=== PATIENT | male | born 1945 | race Caucasian/White ===

== ENCOUNTER → 2017-01-11 | Outpatient (CLI) | payer MEDICARE, OTHER ==
--- NOTE | 2017-01-11 14:04 | RADIOLOGY REPORT (SQ) ---
EXAM DESCRIPTION: CT CHEST WITHOUT COMPLETED DATE/TIME: 01/11/2017 1:05 pm REASON FOR STUDY: SOLITARY PULMONARY NODULE (R91.1) R91.1 SOLITARY PULMONARY NODULE COMPARISON: CT chest 12/08/2012, 12/24/2012, 06/02/2013, 10/08/2014, 08/08/2015 TECHNIQUE: CT scan performed of the chest without intravenous contrast. Images reviewed with lung, soft tissue and bone windows. Reconstructed coronal and sagittal MPR images reviewed. All images st ored on PACS. All CT scanners at this facility use dose modulation, iterative reconstruction, and/or weight based d osing when appropriate to reduce radiation dose to as low as reasonably achievable (ALARA). [facility]: Dose Right [facility]: CareDose [facility]: Dose Right [facility]: Teradose 4D [facility]: [employer] RADIATION DOSE: Up-to-date CT equipment and radiation dose reduction techniques were employed. CTDIv ol: 13.5 mGy. DLP: 552 mGy-cm. mGy. LIMITATIONS: No technical limitations. FINDINGS: LUNGS AND PLEURA: Since the prior studies, patient has developed partial collapse and cons olidation in the lateral segment right middle lobe and lateral segment right lower lobe. The lower l obe consolidation partially obscures the nodule in the right posterolateral costophrenic sulcus which has been followed with serial exams. No pleural effusions. No pneumothorax. Obstructive lung disease at both apices. No significant fin dings left lung. Mucus or debris occludes the right lower lobe segmental bronchi best shown on axial images 78-85. HILAR AND MEDIASTINAL STRUCTURES: No identified masses or abnormal nodes. No obvious aneurysm. HEART AND VASCULAR STRUCTURES: Trace pericardial fluid, stable. Very heavily calcified coronary yariel john, spotty aortic valve calcification. UPPER ABDOMEN: Small hiatal hernia. Radiopaque gallstones without gallbladder wall thickening THYROID AND OTHER SOFT TISSUES: No masses. No adenopathy. BONES: Osteopenic with stable upper endplate 25% compression of L1 HARDWARE: None in the chest. OTHER: No other significant findings. IMPRESSION: Since the prior studies, patient has developed consolidation worrisome for pneumonia in the lateral segment right middle lobe, and lateral basal segment right lower lobe TECHNICAL DOCUMENTATION: JOB ID: [id number] Quality ID # [id number]: Final reports with documentation of one or more dose reduction techniques (e.g., Au tomated exposure control, adjustment of the mA and/or kV according to patient size, use of iterative reconstruction technique) 2010 [employer]- All Rights Reserved
== END ==
LOC: RAD 13:32
PROVIDERS: ATTEND Internal Medicine Pulmonary Disease
DX: R91.1 Solitary pulmonary nodule (principal)
CPT/HCPCS: 71250

== ENCOUNTER 2017-05-21 09:09 | Emergency (ER) | payer MEDICARE, OTHER ==
[2017-05-21] MEDS ORDERED: NORMAL SALINE 1000 ML 1,000 ML IV ONE (09:41)
--- NOTE | 2017-05-21 10:17 | RADIOLOGY REPORT (SQ) ---
EXAM DESCRIPTION: CHEST SINGLE VIEW COMPLETED DATE/TIME: 05/21/2017 10:06 am REASON FOR STUDY: cough COMPARISON: CT chest 01/11/2017, 08/08/2015 Chest films 08/08/2015, 06/29/2015 EXAM PARAMETERS: NUMBER OF VIEWS: One view. TECHNIQUE: Single frontal radiographic view of the chest acquired. RADIATION DOSE: NA LIMITATIONS: None. FINDINGS: LUNGS AND PLEURA: Mild hyperinflation of the upper lobes from obstructive disease. In the right lateral lung base, chronic increased interstitial markings are present with nodular scar ring in this area on prior chest CT exam. No pleural effusions. No pneumothorax. MEDIASTINUM AND HILAR STRUCTURES: No masses. Contour normal. HEART AND VASCULAR STRUCTURES: Heart normal in size. Normal vasculature. BONES: No acute findings. HARDWARE: None in the chest. OTHER: No other significant finding. IMPRESSION: Obstructive lung disease at the apices. Right lateral lung base scarring, similar compared to prior chest CT exams TECHNICAL DOCUMENTATION: JOB ID: [id number] [employer]- All Rights Reserved
[2017-05-21] MEDS ORDERED: CARVEDILOL 3.125 MG TABLET PO ONE (10:20)
--- NOTE | 2017-05-21 10:24 | ER Document Report ---
ED General - General Chief Complaint: General Weakness Stated Complaint: ALTERED MENTAL STATUS Time Seen by Provider: 05/21/17 09:40 Notes: The patient is a 72-year-old male, past medical history A. fib (on Coreg and Xarelto), presents from [facility] after he was not acting right. The detention staff said he was not "moving around like he normally does." Patient was noted to be soaked with foul-smelling urine on arrival to the ER. Patient is AAO 3 and has no complaints at this time. While in the ER, he went into A. fib RVR, but he denies chest pain, palpitations, syncope, shortness of breath, nausea, vomiting or fevers. TRAVEL OUTSIDE OF THE [place] IN LAST 30 DAYS: No - Related Data Allergies/Adverse Reactions: No Known Allergies Allergy (Verified 12/08/12 07:13) Past Medical History - General Information source: Patient, Outside Facility Records - Social History Smoking Status: Unknown if Ever Smoked Family History: Reviewed & Not Pertinent, Hypertension - Past Medical History Cardiac Medical History: Reports: Hx Hypertension - undiagnosed Pulmonary Medical History: Reports: Hx COPD - undiagnosed Psychiatric Medical History: Denies: Hx Depression - Immunizations Hx Diphtheria, Pertussis, Tetanus Vaccination: No Review of Systems - Review of Systems Notes: REVIEW OF SYSTEMS: CONSTITUTIONAL: -fevers, -chills EENT: -eye pain, -difficulty swallowing, -nasal congestion CARDIOVASCULAR: -chest pain, -syncope. RESPIRATORY: -cough, -SOB GASTROINTESTINAL: -abdominal pain, -nausea, -vomiting, -diarrhea GENITOURINARY: -dysuria, -hematuria MUSCULOSKELETAL: -back pain, -neck pain SKIN: -rash or skin lesions. HEMATOLOGIC: -easy bruising or bleeding. LYMPHATIC: -swollen, enlarged glands. NEUROLOGICAL: +AMS, -loss of consciousness, -headache, -neurologic symptoms PSYCHIATRIC: -anxiety, -depression. ALL OTHER SYSTEMS REVIEWED AND NEGATIVE. Physical Exam - Vital signs Vitals: Temp 97.9 F 05/21/17 09:20 - Notes Notes: PHYSICAL EXAMINATION: GENERAL: Well-appearing, well-nourished and in no acute distress. HEAD: Atraumatic, normocephalic. EYES: Pupils equal round and reactive to light, extraocular movements intact, sclera anicteric, conjunctiva are normal. ENT: nares patent, oropharynx clear without exudates. Moist mucous membranes. NECK: Normal range of motion, supple without lymphadenopathy LUNGS: Breath sounds clear to auscultation bilaterally and equal. No wheezes rales or rhonchi. HEART: Tachycardia, irregularly irregular rhythm. ABDOMEN: Soft, nontender, normoactive bowel sounds. No guarding, no rebound. No masses appreciated. EXTREMITIES: Normal range of motion, no pitting or edema. No cyanosis. NEUROLOGICAL: Cranial nerves grossly intact. Normal speech. Normal sensory and motor exams. PSYCH: Normal mood, normal affect. SKIN: Warm, Dry, normal turgor, no rashes or lesions noted. Course - Re-evaluation Re-evalutation: Patient appears well and is in no acute distress. He is AAO 3 and has no complaints at this time. His head CT did not show any acute changes and blood work was unremarkable. Patient jumped into AEVRST with RVR while in the ER. Looking through his records, he takes Coreg and Xarelto. He was provided with Coreg dose with some improvement of his heart rate from 160s down to 130s. Patient kept ripping his IV lines out, so oral beta-blockers were given to the patient with improvement of his RVR. Upon discharge, he continues to not have any symptoms and his heart rate is in the 90s. Blood pressure is 112/81. Instructed him to follow-up with his primary care physician and group art supervisor for further evaluation and treatment. - Vital Signs Vital signs: Temp Pulse Resp BP Pulse Ox 97.9 F 110 H 25 H 95/67 L 93 05/21/17 09:20 05/21/17 15:08 05/21/17 17:01 05/21/17 17:01 05/21/17 17:01 - Laboratory Result Diagrams: 05/21/17 11:06 05/21/17 11:06 Laboratory results interpreted by me: 05/21/17 05/21/17 05/21/17 10:58 11:06 11:06 RDW 15.1 H Lymphocytes % 12.5 L PT 16.0 H Sodium Chloride BUN Glucose Direct Bilirubin ALT Creatine Kinase NT-Pro-B Natriuret Pep Urine Protein >=500 H Urine Urobilinogen 2.0 H 05/21/17 05/21/17 11:06 11:06 RDW Lymphocytes % PT Sodium 148.6 H Chloride 108 H BUN 22 H Glucose 131 H Direct Bilirubin 0.6 H ALT 79 H Creatine Kinase 45 L NT-Pro-B Natriuret Pep 2200 H Urine Protein Urine Urobilinogen - Diagnostic Test Radiology reviewed: Image reviewed, Reports reviewed Radiology results interpreted by me: CXR: Obstructive lung disease at the apices. Right lateral lung base scarring, similar compared to prior chest CT exams. - EKG Interpretation by Me EKG shows normal: Reserve Rate: Tachycardia Rhythm: A.Fib Additional EKG results interpreted by me: A fib w/ RVR, ST depression in lateral leads Discharge - Discharge Clinical Impression: Atrial fibrillation with rapid ventricular response Condition: Stable Disposition: HOME, SELF-CARE Additional Instructions: Continue your Xarelto and Coreg as instructed and speak to your group art supervisor about further evaluation and treatment. Your head scan, blood work and urine are all unremarkable. Atrial Fibrillation Atrial fibrillation is an abnormal heart rhythm, caused by irregular electrical circuits in the upper heart chamber. It can be caused by heart valve disease, hardening of the arteries, or metabolic problems such as thyroid disease, or may occur without a clear cause. Atrial fibrillation may occur only occasionally, or may be chronic. Atrial fibrillation often results in a very fast heart rate, with palpitations, lightheadedness, and shortness of breath. Treatment is to slow the abnormally fast rate, and to convert the rhythm back to normal, if possible. Many patients stay in atrial fibrillation for years without symptoms or complications. Your doctor will decide whether you can be converted back to a normal heart rhythm. Contact the doctor or emergency medical system at once if you develop chest pain, shortness of breath, or severe lightheadedness, or if you develop any disturbance of consciousness, problems with speech, or localized weakness. Referrals: AVILA GLEASON PA-C [Primary Care Provider] - Follow up as needed
--- NOTE | 2017-05-21 10:58 | RADIOLOGY REPORT (SQ) ---
EXAM DESCRIPTION: CT HEAD WITHOUT COMPLETED DATE/TIME: 05/21/2017 10:38 am REASON FOR STUDY: AMS COMPARISON: December 2012 TECHNIQUE: Axial images acquired through the brain without intravenous contrast. Images reviewed wi th bone, brain and subdural windows. Images stored on PACS. All CT scanners at this facility use dose modulation, iterative reconstruction, and/or weight based d osing when appropriate to reduce radiation dose to as low as reasonably achievable (ALARA). [facility]: Dose Right [facility]: CareDose [facility]: Dose Right [facility]: Teradose 4D [facility]: [employer] RADIATION DOSE: CT Rad equipment meets quality standard of care and radiation dose reduction techniq ues were employed. CTDIvol: 63.6 mGy. DLP: 2326 mGy-cm.mGy. LIMITATIONS: Study is limited somewhat due to motion artifact FINDINGS: VENTRICLES: Prominent. CEREBRUM: No masses. No hemorrhage. No midline shift. Areas of low density in the white matter mos t likely due to chronic micro-vascular ischemic change. No evidence for acute infarction. CEREBELLUM: No masses. No hemorrhage. No alteration of density. No evidence for acute infarction. EXTRAAXIAL SPACES: Age-related involutional change. No fluid collections. No masses. ORBITS AND GLOBE: No intra- or extraconal masses. Normal contour of globe without masses. CALVARIUM: No fracture. PARANASAL SINUSES: No fluid or mucosal thickening. SOFT TISSUES: No mass or hematoma. OTHER: No other significant finding. IMPRESSION: CHRONIC CHANGES OF ATROPHY AND MICROVASCULAR ISCHEMIA. NO ACUTE PROCESS. EVIDENCE OF ACUTE STROKE: NO. TECHNICAL DOCUMENTATION: JOB ID: [id number] Quality ID # [id number]: Final reports with documentation of one or more dose reduction techniques (e.g., Au tomated exposure control, adjustment of the mA and/or kV according to patient size, use of iterative reconstruction technique) 2010 [employer]- All Rights Reserved
[2017-05-21 11:31] LABS: ABSOLUTE LYMPHOCYTES (AUTO) 1.3 10^3/uL (0.5-4.7); ABSOLUTE MONOCYTES (AUTO) 0.9 10^3/uL (0.1-1.4); BASOPHILS % (AUTO) 0.2 % (0-2); HEMATOCRIT 45.2 % (37.9-51.0); HEMOGLOBIN 15.3 g/dL (13.5-17.0); LYMPHOCYTES % (AUTO) 12.5 % (13-45); MEAN CORPUSCULAR HEMOGLOBIN 31.6 pg (27.0-33.4); MEAN CORPUSCULAR HGB CONC 33.8 g/dL (32.0-36.0); MEAN CORPUSCULAR VOLUME 94 fl (80-97); MONOCYTES % (AUTO) 9.3 % (3-13); PLATELET COUNT 180 10^3/uL (150-450); RED BLOOD COUNT 4.82 10^6/uL (4.35-5.55); RED CELL DISTRIBUTION WIDTH 15.1 % (11.5-14.0); TOTAL CELLS COUNTED % (AUTO) 100 %; WHITE BLOOD COUNT 10.2 10^3/uL (4.0-10.5)
[2017-05-21 11:33] LABS: APPEARANCE,URINE SLIGHTLY-CLOUDY; BILIRUBIN,URINE NEGATIVE (NEGATIVE); COLOR,URINE AMBER; GLUCOSE, URINE NEGATIVE (NEGATIVE); KETONES,URINE NEGATIVE (NEGATIVE); LEUKOCYTE ESTERASE,URINE NEGATIVE (NEGATIVE); NITRITE,URINE NEGATIVE (NEGATIVE); PROTEIN,URINE >=500 mg/dL (NEGATIVE); URINE SPECIFIC GRAVITY 1.029
[2017-05-21 11:34] LABS: PARTIAL THROMBOPLASTIN TIME 31.3 SEC (23.5-35.8)
[2017-05-21 11:44] LABS: ALANINE AMINOTRANSFERASE 79 U/L (21-72); ALBUMIN 4.2 g/dL (3.5-5.0); ALKALINE PHOSPHATASE 95 U/L (38-126); ANION GAP 16 (5-19); ASPARTATE AMINO TRANSFERASE 58 U/L (17-59); BILIRUBIN,DIRECT 0.6 mg/dL (0.0-0.4); BILIRUBIN,TOTAL 1.2 mg/dL (0.2-1.3); BLOOD UREA NITROGEN 22 mg/dL (7-20); CALCIUM 9.7 mg/dL (8.4-10.2); CARBON DIOXIDE 25 mmol/L (22-30); CHLORIDE 108 mmol/L (98-107); CREATINE KINASE 45 U/L (55-170); GLUCOSE 131 mg/dL (75-110); LIPASE 213.7 U/L (23-300); POTASSIUM 4.6 mmol/L (3.6-5.0); SODIUM 148.6 mmol/L (137-145); TOTAL PROTEIN 7.5 g/dL (6.3-8.2)
[2017-05-21] MEDS ORDERED: METOPROLOL SUCCINATE 50 MG TAB.SR.24H PO ONE (11:50)
[2017-05-21 11:56] LABS: TROPONIN I 0.015 ng/mL
[2017-05-21 13:43] LABS: VENOUS BLOOD BASE EXCESS -1.6 mmol/L; VENOUS BLOOD HCO3 23.4 mmol/L (20-32); VENOUS BLOOD PCO2 40.9 mmHg (35-63); VENOUS BLOOD PH 7.38 (7.30-7.42)
[2017-05-21] MEDS ORDERED: METOPROLOL TARTRATE 50 MG TABLET PO ONE (14:30)
[2017-05-21 17:47] VITALS: BP 95/67
--- NOTE | 2017-05-21 20:19 | EKG REPORT ---
SEVERITY:- ABNORMAL ECG - ATRIAL FIBRILLATION WITH RAPID V-RATE VENTRICULAR PREMATURE COMPLEX INCOMPLETE RIGHT BUNDLE BRANCH BLOCK LOW VOLTAGE IN FRONTAL LEADS ST DEPRESSION, PROBABLY RATE RELATED : Confirmed by: Fiorella Monteiro 21-May-2017 20:18:48
== END 2017-05-21 17:45 | disposition home or self-care (01) ==
LOC: ER 09:09
DX: I48.91 Unspecified atrial fibrillation (principal); Z79.01 Long term (current) use of anticoagulants; Z79.899 Other long term (current) drug therapy; R41.82 Altered mental status, unspecified; J44.9 Chronic obstructive pulmonary disease, unspecified
CPT/HCPCS: 93005; 99285; 96360; 36415; 87040; 87086; 82550; 83690; 85025; 85610; 85730; 87077; 80053; 81001; 84484; 82803; 83605; 83880; 71045; 70450; 93010; A9270 ×3; J7030; 87186